=== PATIENT | female | born 1955 | race Caucasian/White ===

== ENCOUNTER 2016-04-08 10:31 | Emergency (ER) | payer MEDICARE ==
[2016-04-08 11:29] VITALS: BP 152/88
--- NOTE | 2016-04-08 12:06 | UC ---
FLU HPI - HPI Summary HPI Summary: 60 F w/ no PMH presents with dry cough, fever, chills, loose stool, vomiting for 3 days. She sates that sometimes she has nausea. Her brother had the flu. She denies any chest pain or SOB, swelling or pain of calves. She has taken an Alleve. two weeks ago she had wrist surgery. She is a nonsmoker. - History of Current Complaint Chief Complaint: UCGeneralIllness Stated Complaint: CHILLS,COUGH Time Seen by Provider: 04/08/16 11:55 - Allergy/Home Medications Allergies/Adverse Reactions: Allergies Allergy/AdvReac Type Severity Reaction Status Date / Time No Known Allergies Allergy Verified 04/08/16 11:29 Home Medications: Home Medications Hydrocodone-Acetaminophen [Hydrocodone/Acetaminophen 5-325 mg] 04/08/16 [ History] Naproxen Sodium-Diphenhydramin [Aleve Pm 220-25 mg] 1 tab PO 04/08/16 [History] Omeprazole CAP* [Prilosec CAP* 20 MG] 04/08/16 [History] PMH/Surg Hx/FS Hx/Imm Hx Endocrine History Of: Denies: Diabetes, Thyroid Disease, Hyperthyroidism, Hypothyroidism, Dyslipidemia Respiratory History Of: Denies: COPD, Asthma - Surgical History Surgical History: Yes Surgery Procedure, Year, and Place: right wrist x2 since 02/26/16. ankle - Family History Known Family History: Negative: Cardiac Disease - Social History Alcohol Use: None Substance Use Type: None Smoking Status (MU): Never Smoked Tobacco Review of Systems Constitutional: Fever ENT: Sore Throat, Nasal Discharge Respiratory: Cough Cardiovascular: Negative Gastrointestinal: Abdominal Pain - generalized, Vomiting, Diarrhea All Other Systems Reviewed And Are Negative: Yes Physical Exam Triage Information Reviewed: Yes Appearance: Ill-Appearing Vital Signs: Initial Vital Signs Temp 100.0 F 04/08/16 11:23 Pulse 125 04/08/16 11:23 Resp 20 04/08/16 11:23 BP 152/88 04/08/16 11:23 Pulse Ox 98 04/08/16 11:23 Vital Signs Reviewed: Yes Eyes: Positive: Conjunctiva Clear ENT: Positive: Normal ENT inspection, Pharyngeal erythema, Nasal drainage, TMs normal. Negative: Tonsillar swelling, Tonsillar exudate, Trismus, Muffled/ hoarse voice Neck: Positive: Supple, Nontender, No Lymphadenopathy Respiratory: Positive: Lungs clear, Normal breath sounds Cardiovascular: Positive: RRR Abdomen Description: Positive: Nontender, Soft Bowel Sounds: Positive: Present Flu Course/Dx - Course Course Of Treatment: flu positive, symptoms go along with the flu do not suspect any other reason for symptoms, patient appears nontoxic, passed 48 hours to treat but patient says would still liked to treated so will give tamiflu and treat symptoms, patient agrees with plan - Differential Dx/Diagnosis Differential Diagnosis/HQI/PQRI: Bronchitis, Influenza, Upper Respiratory Infection Provider Diagnoses: influenza Discharge - Discharge Plan Condition: Good Disposition: HOME Prescriptions: Loperamide CAP* [Imodium CAP*] 2 mg PO SEE INSTRUCTIONS #12 cap Ondansetron ODT TAB* [Zofran Odt TAB*] 4 mg PO Q6H PRN #10 tab.odt PRN Reason: Nausea Oseltamivir CAP* [Tamiflu CAP*] 75 mg PO BID #10 cap Patient Education Materials: Influenza (ED) Referrals: Non Staff,Doctor [Primary Care Provider] - Additional Instructions: Loperamide Initial: 4 mg (2 tablets), followed by 2 mg (1 tablet) after each loose stool (maximum: 8 tablets a day) Zofran every 6 hours as needed for nausea Take tamiflu twice a day for 5 days Drink small amounts of fluid as tolerated When able to eat follow BRAT diet: Bananas, rice, applesauce, toast Take ibuprofen or Tylenol for muscle aches and fever every 6 hours Follow up with primary within 5 days Return to ED if develop severe abdominal pain, or any new or worsening symptoms
== END 2016-04-08 12:32 | disposition home or self-care (01) ==
LOC: UCEAST 10:31
DX: J11.1 Influenza due to unidentified influenza virus with other respiratory manifestations (principal)
CPT/HCPCS: 87502; 99212; G0463

== ENCOUNTER 2017-07-23 20:01 | Emergency (ER) | payer MEDICARE ==
[2017-07-23] MEDS ORDERED: oxyCODONE/Acetamin 5/325 MG* TAB PO ONE (20:30)
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
[2017-07-23 21:40] VITALS: BP 143/99
== END 2017-07-23 21:40 | disposition home or self-care (01) ==
LOC: ED 20:01
DX: S00.03XA Contusion of scalp, initial encounter (principal); S00.432A Contusion of left ear, initial encounter; S62.613A Displaced fracture of proximal phalanx of left middle finger, initial encounter for closed fracture; Y04.8XXA Assault by other bodily force, initial encounter; Y92.9 Unspecified place or not applicable
CPT/HCPCS: 70450; 73140; 99283; A9270-GY